=== PATIENT | male | born 1950 | race Caucasian/White ===

== ENCOUNTER → 2016-07-26 | Outpatient (CLI) | payer OTHER ==
[~2016-07-26] MED LIST: ATEN50TA8 PO; CLC100 PO; CLX20 PO; GLCSR500 PO; OMEP20CA59 PO; ROSU40TA PO; WARF2TAB PO
== END | disposition home or self-care (01) ==
LOC: C.RDSM 07:59
PROVIDERS: ATTEND Physical Medicine & Rehabilitation Sports Medicine
DX: Z96.651 Presence of right artificial knee joint (principal)

== ENCOUNTER → 2017-07-25 | Outpatient (CLI) | payer OTHER, MEDICARE | END | disposition home or self-care (01) | LOC: C.RDSM 18:18 | PROVIDERS: ATTEND Physical Medicine & Rehabilitation Sports Medicine | DX: Z96.651 Presence of right artificial knee joint (principal) ==

== ENCOUNTER → 2018-03-01 | Outpatient (CLI) | payer OTHER, MEDICARE ==
[~2018-03-01] MED LIST changes: +ALFU10TA2 PO; +ATOR-26 PO; -CLC100 PO; +FLUT0.15; -GLCSR500 PO; +IBUP-103 PO; -OMEP20CA59 PO; +OMEP20TA PO; -ROSU40TA PO; -WARF2TAB PO
[2018-03-01 14:52] VITALS: BP 114/73; PULSE 70; TEMP 36.8; O2SAT 95
--- NOTE | 2018-03-01 16:12 | Radiation Oncology Follow-Up ---
Radiation Oncology Follow-Up Date of Visit Mar 01, 2018. 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 41 seeds were placed. He received 8500 cGy Lupron milligrams IM January 12, 2018 Status post completion of external beam radiation therapy January 16, 2018. He received 4500 cGy utilizing volumetric modulated radiation therapy. Last Edited By: Clara Abebe on Jan 27, 2018 13:05 History of Present Illness Mr. Crump presented with an elevated PSA. 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 06/04/2011 --- PSA --- 3.37 07/01/2017 --- PSA --- 8.59 08/16/2017 --- PSA --- 8.73 08/31/2017 --- follow-up evaluation with Dr. Ani Villalobos --- evaluation includes rectal exam which reveals right-sided induration involving the prostate gland concerning for potential prostate cancer. Dr. Villalobos recommended a TRUS-guided biopsy. 09/12/2017 --- transrectal ultrasound-guided biopsy of prostate gland by Dr. Ani Villalobos --- prostate adenocarcinoma, Jae 3+4, Jae 4+3, [place] 4+5. 12 cores with prostate carcinoma. Perineural invasion identified. Prostate gland size measured to be 28.3 cc. 09/19/2017 --- follow-up evaluation with Dr. Ani Villalobos --- Dr. Vlilalobos discussedd treatment options for the patient's high risk prostate cancer including surgery and radiation therapy. Dr. Villalobos did express some concern for difficulty with surgery given the patient's previous history of fistula involving the bladder and previous pelvic surgery. Dr. Villalobos still did offer to refer the patient to a robotic surgeon however the patient preferred to be considered for radiation therapy. Dr. Villalobos also recommended completing staging workup including CT of abdomen pelvis and bone scan. 09/22/2017 --- bone scan --- no evidence of increased metabolic activity to suggest bony metastasis. 09/24/2017 --- CT of abdomen/pelvis --- there is no abnormal lymphadenopathy in the abdomen and pelvis. Small periaortic, pelvic, bilateral inguinal lymph nodes stable from prior study. No obvious CT findings to suggest metastatic disease. Distal left periureteral soft tissue stranding/density similar to prior study. His decision was to proceed with hormone suppression followed by a prostate seed implant and then external beam therapy. Interim History He has been doing well over the past month. Urinary status is stable. He gave an AUA score of 5. At the end of treatment he gave a score of 6.5. He has some slight dysuria. He completed and expanded prostate cancer index composite for clinical practice and gave a score of 0 of 12 and urinary incontinence symptoms. He gave a score of 3 of 12 and urinary irritation symptoms. He gave a score of 0 of 12 and bowel symptoms. He did not complete the sexual symptom questions due to impotence secondary to the hormone suppression. He gives score of 2 of 12 in hormonal vitality symptoms. His total was 6 of 48. Allergies Coded Allergies: Chlorhexidine (Verified Allergy, Intermediate, Red, rash, itchy- skin irritation burning, 10/27/17) Penicillins (Verified Allergy, Unknown, hives, 10/27/17) Niacin (Verified Adverse Reaction, Unknown, redness face and neck, 10/27/17 ) Home Medications Scheduled Alfuzosin Hcl (Uroxatral), 10 MG PO DAILY Atenolol (Tenormin), 50 MG PO QAM Atorvastatin (Lipitor), 1 TAB PO HS Citalopram (Citalopram Hydrobromide), 20 MG PO QAM Fluticasone Propionate (Nasal) (Flonase Allergy Relief), 2 SPRAYS NA HS Omeprazole (Omeprazole), 1 TAB PO QAM Scheduled PRN Ibuprofen Tab (Advil), 200 MG PO QD PRN for Pain Review of Systems Gastrointestinal: Symptoms: WNL Oral: Symptoms: No Problems Respiratory: Symptoms: WNL Urinary: Symptoms: WNL, Burning, Nocturia Comments: Nocturia maybe times 1, See AUA & EPIC Skin: Symptoms: No Problems Additional Notes: He completed a distress management report and answered "no" to all questions. Physical Exam Vital Signs Date Time Temp Pulse Resp B/P (MAP) Pulse Ox O2 Delivery O2 Flow Rate FiO2 03/01/18 14:52 36.8 70 16 114/73 95 ECOG Performance Status: 0 General Appearance: no apparent distress Eyes: normal inspection, EOMI ENT: normal ENT inspection, hearing grossly normal Respiratory/Chest: lungs clear, no respiratory distress, no accessory muscle use Cardiovascular: regular rate, rhythm, no gallop, no murmur Abdomen: non tender, soft, no organomegaly Extremities: no pedal edema Neurologic/Psychiatric: no motor/sensory deficits, alert, normal mood/affect Skin: warm/dry Pain Management Patient Reports Pain: No Initial Pain Intensity: 0.0 Pain Management Plan He denies pain therefore requires no pain management. Laboratory Laboratory Results: were reviewed, and pertinent findings noted below Laboratory Comments: Test 03/01/18 15:24 Prostate Specific Antigen 0.035 ng/ml (0.000-4.000) Pathology Pathology Results: were reviewed, and pertinent findings noted in HPI Imaging Imaging Studies: not applicable Assessment & Plan Plan: PSA was drawn today. He will be notified as to results. He continues on hormonal suppression. He will be returning in July for another injection. We have discussed the dose. He felt he did better on the 22.5 mg dose. After discussion he wanted to continue with the 45 mg dose. We discussed taking calcium and vitamin D. He has been taking the supplements. I encouraged him to continue to take these supplements. His diet does not include a lot of calcium. He will have recheck PSAs every 6 months. Continue follow-up with Dr. Villalobos and his primary care provider. Today we completed a cancer survivorship care plan. Copy of the document was given to the patient. He was given a survivorship booklet. He does have some significant family history and that has mother had breast cancer. He also has found that a cousin and uncle have had prostate cancer. I discussed with him that he may benefit from genetic testing. He can review this with Dr. Villalobos as well as his primary care provider. He will return to our office for recheck visit in 6 months. Total Time In Follow-Up I spent 20 minutes speaking to the patient in performing examination. I spent 20 minutes reviewing information, preparing the survivorship document, and completing this note. [place] Copy To Izabela HALLMAN M.D.; Ani Villalobos MD
== END | disposition home or self-care (01) ==
LOC: C.ONC 14:41
PROVIDERS: ATTEND Physician Assistant Medical
DX: Z08 Encounter for follow-up examination after completed treatment for malignant neoplasm (principal); Z92.3 Personal history of irradiation; Z85.46 Personal history of malignant neoplasm of prostate